=== PATIENT | male | born 1950 | race African-American/Black ===

== ENCOUNTER 2021-08-18 21:03 | Emergency (ER) | payer MEDICARE ==
[~2021-08-18] VITALS: Ht 175.3 cm; Wt 120.5 kg
[2021-08-18] MEDS ORDERED: ACETAMINOPHEN 500 MG TABLET PO ONE (22:30)
[2021-08-18 23:19] VITALS: BP 128/71
== END 2021-08-19 00:47 | disposition home or self-care (01) ==
LOC: EMS 21:44
DX: S81.802A Unspecified open wound, left lower leg, initial encounter (principal); E11.9 Type 2 diabetes mellitus without complications; I10 Essential (primary) hypertension; W08.XXXA Fall from other furniture, initial encounter; Y93.9 Activity, unspecified; Y92.89 Other specified places as the place of occurrence of the external cause; Y99.8 Other external cause status
CPT/HCPCS: 99283

== ENCOUNTER 2021-10-25 01:36 | Inpatient (IN) | payer MEDICARE, OTHER ==
[~2021-10-25] VITALS: Ht 177.8 cm; Wt 123.2 kg
[2021-10-25] MEDS ORDERED: ACET-66 PO (02:08)
[2021-10-25] MEDS ORDERED: INSNOV SQ (02:08)
[2021-10-25] MEDS ORDERED: ASPI-1444 PO (02:08)
[2021-10-25] MEDS ORDERED: METO25 PO (02:08)
[2021-10-25] MEDS ORDERED: AMIO100T4 PO (02:08)
[2021-10-25] MEDS ORDERED: SENN-308 PO (02:08)
[2021-10-25] MEDS ORDERED: ATOR40TA28 PO (02:08)
[2021-10-25] MEDS ORDERED: BACL10TA PO (02:08)
[2021-10-25] MEDS ORDERED: ALBU8HFA IH (02:08)
[2021-10-25] MEDS ORDERED: BACL5TAB PO (02:08)
[2021-10-25] MEDS ORDERED: AMLO-258 PO (02:08)
[2021-10-25 02:13] LABS: COVID AG,FIA SOURCE NASOPHARYNGEAL
[2021-10-25 02:20] LABS: BASOPHILS % (AUTO) 0.7 % (0.0-2.0); EOSINOPHILS % (AUTO) 3.7 % (1.0-6.0); HEMATOCRIT 27.2 % (41-53); HEMOGLOBIN 8.3 g/dL (13.5-17.5); LYMPHOCYTES # (AUTO) 1.1 K/uL (1.0-4.8); LYMPHOCYTES % (AUTO) 8.7 % (22.0-44.0); MEAN CORPUSCULAR HEMOGLOBIN 23.9 pg (26.0-34.0); MEAN CORPUSCULAR HGB CONC 30.7 G/dL (31.0-37.0); MEAN CORPUSCULAR VOLUME 78 fL (80-100); MONOCYTES % (AUTO) 7.7 % (2.0-9.0); NEUTROPHILS # (AUTO) 10.1 K/uL (1.8-7.7); NEUTROPHILS % (AUTO) 79.2 % (40.0-70.0); PLATELET COUNT (AUTO) 380 K/uL (150-450); RED BLOOD CELL COUNT(AUTO) 3.49 MIL/uL (4.50-5.90); RED CELL DISTRIBUTION WIDTH 20.1 % (11.5-14.5)
[2021-10-25 02:32] LABS: INFLUENZA TYPE A NEGATIVE FOR TYPE A (NEGATIVE); INFLUENZA TYPE B NEGATIVE FOR TYPE B (NEGATIVE)
[2021-10-25 02:50] LABS: BILIRUBIN,TOTAL 0.5 mg/dL (0.1-1.0); CALCIUM, TOTAL 8.9 mg/dL (8.8-10.5); CREATININE 1.55 mg/dL (0.60-1.30); TOTAL PROTEIN, SERUM 8.5 g/dL (6.4-8.2)
[2021-10-25] MEDS ORDERED: SODIUM CHLORIDE 0.9% 100 ML ONE (03:54)
[2021-10-25] MEDS ORDERED: IOHEXOL 350 MG/ML 100 ML VIAL ONE (03:55)
[2021-10-25] MEDS ORDERED: AZITHROMYCIN 500 MG/NS 250 ML IV ONE (04:15)
[2021-10-25] MEDS ORDERED: CefTRIAXone SODIUM 500 MG in DEXTROSE 5%-WATER 50 ML IV ONE (04:15)
[2021-10-25] MEDS ORDERED: IPRATROPIUM BROMIDE 0.5 MG/2.5 ML NEB SOLUTION NEB PRN (07:45)
[2021-10-25] MEDS ORDERED: DEXTROSE 50%-WATER 25 GM/50 ML SYRINGE IVP PRN (07:45)
[2021-10-25] MEDS ORDERED: ONDANSETRON HCL 4 MG/2 ML VIAL IVP PRN (07:45)
[2021-10-25] MEDS ORDERED: INSULIN LISPRO 100 UNITS/ML SQ PRN (07:45)
[2021-10-25] MEDS ORDERED: ACETAMINOPHEN 325 MG TABLET PO PRN (07:45)
[2021-10-25] MEDS: HEPARIN SODIUM,PORCINE 5,000 UNITS/ML VIAL SQ SCH ×3 (08:07→23:07)
[2021-10-25] MEDS: FAMOTIDINE 20 MG TABLET PO SCH (08:51)
[2021-10-25] MEDS: DOCUSATE SODIUM 100 MG CAPSULE PO SCH ×2 (08:51→21:00)
[2021-10-25] MEDS: ASPIRIN 81 MG CHEWABLE TABLET PO SCH (08:51)
[2021-10-25] MEDS: AMIODARONE HCL 200 MG TABLET PO SCH (09:30)
[2021-10-25 22:38] VITALS: BP 132/74
[2021-10-25] MEDS ORDERED: MORPHINE SULFATE 2 MG/ML SYRINGE IVP ONE (22:45)
[2021-10-25] MEDS: BACLOFEN 10 MG TABLET PO SCH (23:07)
[2021-10-26] MEDS ORDERED: SODIUM CHLORIDE 0.9% 500 ML IV ONE (02:37)
[2021-10-26 03:15] LABS: APPEARANCE,URINE CLEAR (CLEAR); BILIRUBIN,URINE NEGATIVE (NEGATIVE); GLUCOSE, URINE (UA) NEGATIVE (NEGATIVE); KETONES,URINE NEGATIVE (NEGATIVE); LEUKOCYTE ESTERASE ,URINE NEGATIVE (NEGATIVE); NITRATE,URINE NEGATIVE (NEGATIVE); OCCULT BLOOD,URINE SMALL (NEGATIVE); PH,URINE 5.5 (5.0-8.0); PROTEIN,URINE TRACE mg/dL (NEGATIVE); UROBILINOGEN,URINE <=1.0 mg/dL (<=1.0)
[2021-10-26 03:38] LABS: BACTERIA,URINE None Seen /HPF (None Seen); RBC,URINE 0-2 /HPF (0-2); SQUAMOUS EPITHELIAL CELL,UR Rare /LPF (None Seen); WBC,URINE None Seen /HPF (0-5)
[2021-10-26 04:00] VITALS: BP 127/68
[2021-10-26] MEDS: CefTRIAXone 1 GM/DEXTROSE 50 ML IV SCH (04:36)
[2021-10-26] MEDS: AZITHROMYCIN 500 MG/NS 250 ML IV SCH (04:36)
[2021-10-26 05:32] LABS: GLUCOMETER DEV NAME(LOC) 5N.1C; GLUCOSE,POINT OF CARE 82 MG/DL (70-110)
[2021-10-26] MEDS: DOCUSATE SODIUM 100 MG CAPSULE PO SCH ×2 (07:58→21:41)
[2021-10-26] MEDS: FAMOTIDINE 20 MG TABLET PO SCH (07:58)
[2021-10-26] MEDS: METOPROLOL TARTRATE 25 MG TABLET PO SCH ×2 (07:58→21:42)
[2021-10-26] MEDS: ASPIRIN 81 MG CHEWABLE TABLET PO SCH (07:58)
[2021-10-26 07:59] VITALS: BP 119/58
[2021-10-26] MEDS: HEPARIN SODIUM,PORCINE 5,000 UNITS/ML VIAL SQ SCH ×3 (07:59→22:52)
[2021-10-26] MEDS: AMIODARONE HCL 200 MG TABLET PO SCH (07:59)
[2021-10-26 08:27] LABS: GLUCOMETER DEV NAME(LOC) 5S.1B; GLUCOSE,POINT OF CARE 76 MG/DL (70-110)
[2021-10-26 11:41] VITALS: BP 144/66
[2021-10-26] MEDS ORDERED: HYDROCODONE/ACETAMINOPHEN 5-325 MG TABLET PO PRN ×2 (12:30)
[2021-10-26] MEDS ORDERED: FUROSEMIDE 40 MG/4 ML VIAL IVP ONE (15:45)
[2021-10-26 15:54] VITALS: BP 126/70
[2021-10-26 20:38] VITALS: BP 117/65
[2021-10-26] MEDS: BACLOFEN 10 MG TABLET PO SCH (21:42)
[2021-10-26] MEDS ORDERED: ALBUTEROL SULFATE 2.5 MG/0.5 ML NEB SOLUTION NEB PRN (23:45)
[2021-10-26] MEDS ORDERED: IPRATROPIUM BROMIDE 0.5 MG/2.5 ML NEB SOLUTION NEB PRN (23:45)
[2021-10-26] MEDS: GuaiFENesin SR 600 MG ER TABLET PO SCH (23:48)
[2021-10-26 23:56] VITALS: BP 143/78
[2021-10-27] VITALS (11 sets, daily range): BP systolic 119–165; BP diastolic 73–98
[2021-10-27] MEDS: CefTRIAXone 1 GM/DEXTROSE 50 ML IV SCH (02:34)
[2021-10-27] MEDS: AZITHROMYCIN 500 MG/NS 250 ML IV SCH (04:46)
[2021-10-27 08:14] LABS: BASOPHILS % (AUTO) 0.8 % (0.0-2.0); EOSINOPHILS % (AUTO) 5.4 % (1.0-6.0); HEMATOCRIT 21.8 % (41-53); LYMPHOCYTES # (AUTO) 1.2 K/uL (1.0-4.8); MEAN CORPUSCULAR HEMOGLOBIN 24.3 pg (26.0-34.0); MEAN CORPUSCULAR HGB CONC 31.4 G/dL (31.0-37.0); MEAN CORPUSCULAR VOLUME 77 fL (80-100); MONOCYTES # (AUTO) 0.9 K/uL (0.1-1.0); NEUTROPHILS # (AUTO) 7.2 K/uL (1.8-7.7); NEUTROPHILS % (AUTO) 72.8 % (40.0-70.0); PLATELET COUNT (AUTO) 258 K/uL (150-450); RED BLOOD CELL COUNT(AUTO) 2.82 MIL/uL (4.50-5.90); RED CELL DISTRIBUTION WIDTH 20.2 % (11.5-14.5)
[2021-10-27] MEDS: FAMOTIDINE 20 MG TABLET PO SCH (08:25)
[2021-10-27 08:28] LABS: CALCIUM, TOTAL 8.4 mg/dL (8.8-10.5); CREATININE 1.49 mg/dL (0.60-1.30)
[2021-10-27] MEDS: METOPROLOL TARTRATE 25 MG TABLET PO SCH ×2 (08:30→20:57)
[2021-10-27] MEDS: ASPIRIN 81 MG CHEWABLE TABLET PO SCH (08:34)
[2021-10-27] MEDS: DOCUSATE SODIUM 100 MG CAPSULE PO SCH ×2 (08:34→20:58)
[2021-10-27] MEDS: GuaiFENesin SR 600 MG ER TABLET PO SCH ×2 (08:34→20:58)
[2021-10-27] MEDS: AMIODARONE HCL 200 MG TABLET PO SCH (08:35)
[2021-10-27] MEDS: HEPARIN SODIUM,PORCINE 5,000 UNITS/ML VIAL SQ SCH ×2 (08:35→16:54)
[2021-10-27 08:43] LABS: HEMOGLOBIN 6.8 g/dL (13.5-17.5)
[2021-10-27 08:48] LABS: % IRON SATURATION 4.1 % (30-44)
[2021-10-27] MEDS ORDERED: SODIUM CHLORIDE 0.9% 250 ML IV ONE ×2 (14:32→14:49)
[2021-10-27 16:32] LABS: GLUCOMETER DEV NAME(LOC) 5N.3; GLUCOSE,POINT OF CARE 85 MG/DL (70-110)
[2021-10-27 16:38] LABS: GLUCOMETER DEV NAME(LOC) 5S.2B; GLUCOSE,POINT OF CARE 116 MG/DL (70-110)
[2021-10-27 16:38] LABS: GLUCOMETER DEV NAME(LOC) 5N.1C; GLUCOSE,POINT OF CARE 87 MG/DL (70-110)
[2021-10-27 16:39] LABS: GLUCOMETER DEV NAME(LOC) 5N.3; GLUCOSE,POINT OF CARE 85 MG/DL (70-110)
[2021-10-27] MEDS: PANTOPRAZOLE SODIUM 40 MG DR TABLET PO SCH (16:55)
[2021-10-27] MEDS: FERROUS SULFATE 325 MG EC TABLET PO SCH (18:00)
[2021-10-27] MEDS: BACLOFEN 10 MG TABLET PO SCH (20:58)
[2021-10-28] MEDS: HEPARIN SODIUM,PORCINE 5,000 UNITS/ML VIAL SQ SCH ×3 (00:17→15:52)
[2021-10-28 00:46] VITALS: BP 160/75
[2021-10-28] MEDS: CefTRIAXone 1 GM/DEXTROSE 50 ML IV SCH (03:11)
[2021-10-28] MEDS: AZITHROMYCIN 500 MG/NS 250 ML IV SCH (03:51)
[2021-10-28 03:52] VITALS: BP 139/93
[2021-10-28 07:54] VITALS: BP 161/90
[2021-10-28 08:00] LABS: BASOPHILS % (AUTO) 0.8 % (0.0-2.0); EOSINOPHILS % (AUTO) 3.7 % (1.0-6.0); HEMOGLOBIN 7.2 g/dL (13.5-17.5); LYMPHOCYTES # (AUTO) 1.1 K/uL (1.0-4.8); LYMPHOCYTES % (AUTO) 9.6 % (22.0-44.0); MEAN CORPUSCULAR HEMOGLOBIN 24.1 pg (26.0-34.0); MEAN CORPUSCULAR HGB CONC 31.1 G/dL (31.0-37.0); MEAN CORPUSCULAR VOLUME 77 fL (80-100); MONOCYTES # (AUTO) 1.2 K/uL (0.1-1.0); MONOCYTES % (AUTO) 10.5 % (2.0-9.0); NEUTROPHILS % (AUTO) 75.4 % (40.0-70.0); RED BLOOD CELL COUNT(AUTO) 2.98 MIL/uL (4.50-5.90); RED CELL DISTRIBUTION WIDTH 19.7 % (11.5-14.5)
[2021-10-28 08:02] LABS: PLATELET COUNT (AUTO) 260 K/uL (150-450)
[2021-10-28 08:05] LABS: CALCIUM, TOTAL 8.6 mg/dL (8.8-10.5); CREATININE 1.58 mg/dL (0.60-1.30); POTASSIUM 3.9 mmol/L (3.5-5.1)
[2021-10-28] MEDS: FERROUS SULFATE 325 MG EC TABLET PO SCH (08:11)
[2021-10-28] MEDS: ASPIRIN 81 MG CHEWABLE TABLET PO SCH (08:12)
[2021-10-28] MEDS: GuaiFENesin SR 600 MG ER TABLET PO SCH (08:13)
[2021-10-28] MEDS: PANTOPRAZOLE SODIUM 40 MG DR TABLET PO SCH (08:13)
[2021-10-28] MEDS: METOPROLOL TARTRATE 25 MG TABLET PO SCH (08:13)
[2021-10-28] MEDS: DOCUSATE SODIUM 100 MG CAPSULE PO SCH (08:13)
[2021-10-28] MEDS: AMIODARONE HCL 200 MG TABLET PO SCH (08:13)
[2021-10-28 11:41] LABS: GLUCOMETER DEV NAME(LOC) 5S.2B; GLUCOSE,POINT OF CARE 85 MG/DL (70-110)
[2021-10-28 11:42] LABS: GLUCOMETER DEV NAME(LOC) 5S.2B; GLUCOSE,POINT OF CARE 98 MG/DL (70-110)
[2021-10-28 11:42] LABS: GLUCOMETER DEV NAME(LOC) 5S.2B; GLUCOSE,POINT OF CARE 90 MG/DL (70-110)
[2021-10-28 11:42] LABS: GLUCOMETER DEV NAME(LOC) 5S.2B; GLUCOSE,POINT OF CARE 91 MG/DL (70-110)
[2021-10-28 12:28] VITALS: BP 148/81
[2021-10-28] MEDS ORDERED: ASPI-1444 PO (15:20)
[2021-10-28] MEDS ORDERED: AZIT-104 PO (15:20)
[2021-10-28] MEDS ORDERED: BACL10TA PO (15:21)
[2021-10-28] MEDS ORDERED: FERR325T27 PO (15:22)
[2021-10-28] MEDS ORDERED: DOCU-385 PO (15:22)
[2021-10-28] MEDS ORDERED: HEPA500018 SQ (15:23)
[2021-10-28] MEDS ORDERED: GUAIF600 PO (15:23)
[2021-10-28] MEDS ORDERED: ACET-2247 PO (15:24)
[2021-10-28] MEDS ORDERED: PANT-31 PO (15:24)
[2021-10-28] MEDS ORDERED: METO50 PO (15:24)
[2021-10-28] MEDS ORDERED: AUD NEB (15:25)
[2021-10-28] MEDS ORDERED: HYDR-4723 PO (15:26)
[2021-10-28] MEDS ORDERED: INSU100V SQ (15:26)
[2021-10-28 15:27] VITALS: BP 137/79
[2021-10-28] MEDS ORDERED: IPRAHFA NEB (15:28)
[2021-10-28 18:01] LABS: GLUCOMETER DEV NAME(LOC) 5N.1C; GLUCOSE,POINT OF CARE 96 MG/DL (70-110)
[2021-10-28 18:01] LABS: GLUCOMETER DEV NAME(LOC) 5N.1C; GLUCOSE,POINT OF CARE 116 MG/DL (70-110)
[2021-10-28] MEDS ORDERED: METOPROLOL TARTRATE 25 MG TABLET PO SCH (21:00)
== END 2021-10-28 17:50 | DRG 291 ==
LOC: EMS 01:36 → 5S 07:43
PROVIDERS: ADMIT Internal Medicine; ATTEND Internal Medicine
PROC: 30233N1 Transfusion of Nonautologous Red Blood Cells into Peripheral Vein, Percutaneous Approach (ICD-10-PCS; principal; 2021-10-27)
DX: I13.0 Hypertensive heart and chronic kidney disease with heart failure and stage 1 through stage 4 chronic kidney disease, or unspecified chronic kidney disease (principal); J96.21 Acute and chronic respiratory failure with hypoxia; J18.9 Pneumonia, unspecified organism; I50.33 Acute on chronic diastolic (congestive) heart failure; I48.20 Chronic atrial fibrillation, unspecified; E66.01 Morbid (severe) obesity due to excess calories; E11.22 Type 2 diabetes mellitus with diabetic chronic kidney disease; E78.5 Hyperlipidemia, unspecified; Z20.822 Contact with and (suspected) exposure to COVID-19; I34.0 Nonrheumatic mitral (valve) insufficiency; N18.30 Chronic kidney disease, stage 3 unspecified; D50.9 Iron deficiency anemia, unspecified; D63.8 Anemia in other chronic diseases classified elsewhere; E11.40 Type 2 diabetes mellitus with diabetic neuropathy, unspecified; E11.51 Type 2 diabetes mellitus with diabetic peripheral angiopathy without gangrene; G47.00 Insomnia, unspecified; K59.00 Constipation, unspecified; E78.00 Pure hypercholesterolemia, unspecified; G47.33 Obstructive sleep apnea (adult) (pediatric); Z79.84 Long term (current) use of oral hypoglycemic drugs; Z68.39 Body mass index [BMI] 39.0-39.9, adult; Z99.81 Dependence on supplemental oxygen
CPT/HCPCS: 70450; 71045; 71275; 80048; 80053; 81001; 82550; 82962; 83540; 83550; 83880; 84484; 85025; 85379; 86850; 86900; 86901; 86923; 87040; 87081; 87804; 93005; 93306; 97112; 97163; 99285; J0456; J0696; J1644; J1940; J2270; J7040; J7050; J7060; P9016; Q9967; 36415-L1; 36415-TC; U0003